=== PATIENT | female | born 2000 | race Caucasian/White ===

== ENCOUNTER 2023-08-19 06:53 | Emergency (ER) | payer OTHER ==
[~2023-08-19] VITALS: Ht 152.4 cm; Wt 77.1 kg
[2023-08-19 07:05] VITALS: BP 115/76; PULSE 68; RESP 16; TEMP 97.9; O2SAT 100
[2023-08-19] MEDS ORDERED: ACET-503 PO (07:38)
[2023-08-19 07:51] VITALS: BP 101/56; PULSE 68; O2SAT 100
== END 2023-08-19 07:51 | disposition home or self-care (01) ==
LOC: MED 06:53
DX: H92.02 Otalgia, left ear (principal)
CPT/HCPCS: 81025; 99283